=== PATIENT | male | born 1935 | race Caucasian/White ===

== ENCOUNTER → 2016-11-26 | Outpatient (CLI) | payer MEDICARE, OTHER ==
[~2016-11-26] MED LIST: ADVAIR 250/501 EA INH; ASPIRIN325 M2 PO; ASPIRIN325 MG PO; AVODART0.5 MG PO; BISACODYL5 MG PO; BREO ELLIPTA 11 EACH IH; BREO ELLIPTA INH; BUMETANIDE2 MG PO; BUMEX2 MG PO; CITRACAL-VIT D1 EAC1 PO; DAYPRO600 M1 PO; DIGOXIN0.125 MG PO; DIGOXIN0.25 MG PO; DIPHENHYDRAMINE25 MG PO; DUONEB 3 MG/3 ML3 M1 NEB; EFFEXOR XR75 M2 PO; FEXOFENADINE180 MG PO; FLOMAX0.4 MG PO; FUROSEMIDE20 MG PO; HYDROCODONE BIT1 T11 PO; K-DUR 2020 MEQ PO; LANTUS SOLOS100 U/M1 SC; LANTUS100 U/ML SC; LEVEMIR10 ML SC; LORAZEPAM1 MG PO; LYRICA150 MG PO; METOLAZONE2.5 MG PO; MORPHINE SULFAT15 MG PO; MS CONTIN30 MG PO; NEURONTIN100 MG PO; NOVOLOG MI100 UNIT/1 SQ; NOVOLOG MIX 70/30 SC; OMNICEF300 MG PO; OXYGEN NAS; POTASSIUM CHLO20 ME1 PO; POTASSIUM CHLO20 MEQ PO; ROBAXIN750 MG PO; VENLAFAXINE HY150 M2 PO; VERAPAMIL ER240 MG PO; VIBRAMYCIN100 MG PO; VICO75300 PO; VITAMIN D50000 UNIT PO
[2016-11-26 10:54] LABS: URINE TP/CRE RATIO 0.5 (<0.21)
== END | disposition home or self-care (01) ==
LOC: LAB 10:30
PROVIDERS: Internal Medicine Nephrology
DX: I12.9 Hypertensive chronic kidney disease with stage 1 through stage 4 chronic kidney disease, or unspecified chronic kidney disease (principal); I50.9 Heart failure, unspecified; N18.4 Chronic kidney disease, stage 4 (severe); E55.9 Vitamin D deficiency, unspecified; E21.1 Secondary hyperparathyroidism, not elsewhere classified

== ENCOUNTER → 2017-02-05 | Outpatient (CLI) | payer MEDICARE, OTHER ==
[2017-02-05 13:31] LABS: BASO # 0.1 10*3/uL (0.0-0.1); BASO % 0.6 % (0.0-1.0); EOS # 0.2 10*3/uL (0.0-0.4); EOS % 1.6 % (1.0-4.0); HEMATOCRIT 41.9 % (42.0-52.0); HEMOGLOBIN 12.7 g/dl (14.0-18.0); IG # 0.1 10*3/uL (0.0-0.1); LYMPH % 21.1 % (27.0-41.0); MEAN CELL VOLUME 92.9 fl (80.0-94.0); MEAN CORPUSCULAR HGB 28.2 pg (27.0-31.0); MEAN CORPUSCULAR HGB CONC 30.3 g/dl (33.0-37.0); MEAN PLATELET VOLUME 9.8 fl (9.6-12.3); MONO # 1.2 10*3/uL (0.1-1.0); MONO % 8.4 % (3.0-9.0); NEUT # 9.4 10*3/uL (2.3-7.9); NEUT % 67.4 % (47.0-73.0); PLATELET COUNT AUTOMATED 238 10*3/uL (130-400); RED BLOOD COUNT 4.51 10*6/uL (4.50-5.90); RED CELL DISTRI WIDTH 16.3 % (0-14.5); RETICULOCYTE % 2.56 % (0.50-2.50)
[2017-02-05 13:34] LABS: IRF 27.5 % (2.4-13.3)
[2017-02-05 13:41] LABS: URINE TP/CRE RATIO 0.5 (<0.21)
[2017-02-05 13:57] LABS: ALBUMIN 3.6 gm/dl (3.1-4.5); BILIRUBIN, TOTAL 0.6 mg/dl (0.2-1.0); MAGNESIUM 2.3 mg/dL (1.5-2.1); PHOSPHOROUS 2.9 mg/dL (2.5-4.9); TOTAL PROTEIN 7.6 gm/dL (6.4-8.2)
[2017-02-05 14:05] LABS: FERRITIN 176.5 ng/mL (22.0-322.0); PTH INTACT 86.4 pg/mL (14.0-72.0)
== END | disposition home or self-care (01) ==
LOC: LAB 01-31 00:59
PROVIDERS: Internal Medicine Nephrology
DX: I13.0 Hypertensive heart and chronic kidney disease with heart failure and stage 1 through stage 4 chronic kidney disease, or unspecified chronic kidney disease (principal); E11.22 Type 2 diabetes mellitus with diabetic chronic kidney disease; N18.4 Chronic kidney disease, stage 4 (severe); I50.9 Heart failure, unspecified; E21.1 Secondary hyperparathyroidism, not elsewhere classified; M18.4 Other bilateral secondary osteoarthritis of first carpometacarpal joints; E55.9 Vitamin D deficiency, unspecified

== ENCOUNTER → 2017-04-16 | Outpatient (CLI) | payer MEDICARE, OTHER ==
[2017-04-16 12:33] LABS: BASO % 0.3 % (0.0-1.0); EOS # 0.1 10*3/uL (0.0-0.4); HEMATOCRIT 39.2 % (42.0-52.0); IG # 0.1 10*3/uL (0.0-0.1); LYMPH # 1.3 10*3/uL (1.3-4.4); LYMPH % 12.5 % (27.0-41.0); MEAN CELL VOLUME 90.3 fl (80.0-94.0); MEAN CORPUSCULAR HGB 27.6 pg (27.0-31.0); MEAN CORPUSCULAR HGB CONC 30.6 g/dl (33.0-37.0); MEAN PLATELET VOLUME 9.2 fl (9.6-12.3); MONO % 9.3 % (3.0-9.0); NEUT # 7.8 10*3/uL (2.3-7.9); NEUT % 76.2 % (47.0-73.0); PLATELET COUNT AUTOMATED 229 10*3/uL (130-400); RED BLOOD COUNT 4.34 10*6/uL (4.50-5.90); RET-He 27.3 pg (32.1-37.9); RETICULOCYTE % 1.98 % (0.50-2.50); WHITE BLOOD COUNT 10.3 10*3/uL (4.8-10.8)
[2017-04-16 12:47] LABS: URINE TP/CRE RATIO 0.6 (<0.21)
[2017-04-16 13:01] LABS: ALBUMIN 2.9 gm/dl (3.1-4.5); PHOSPHOROUS 2.2 mg/dL (2.5-4.9); POTASSIUM 4.1 mmol/L (3.5-5.1)
[2017-04-16 13:02] LABS: FERRITIN 170.5 ng/mL (22.0-322.0); PTH INTACT 79.3 pg/mL (14.0-72.0); VITAMIN D, 25-HYDROXY 30.7 ng/mL (30-100)
[2017-04-16 13:03] LABS: BILIRUBIN, TOTAL 0.4 mg/dl (0.2-1.0)
== END | disposition home or self-care (01) ==
LOC: LAB 01:40
PROVIDERS: Internal Medicine Nephrology
DX: I13.0 Hypertensive heart and chronic kidney disease with heart failure and stage 1 through stage 4 chronic kidney disease, or unspecified chronic kidney disease (principal); E11.22 Type 2 diabetes mellitus with diabetic chronic kidney disease; I50.9 Heart failure, unspecified; N18.4 Chronic kidney disease, stage 4 (severe); E21.1 Secondary hyperparathyroidism, not elsewhere classified; E55.9 Vitamin D deficiency, unspecified

== ENCOUNTER → 2017-06-17 | Outpatient (CLI) | payer MEDICARE, OTHER ==
[2017-06-17 16:29] LABS: BASO # 0.1 10*3/uL (0.0-0.1); BASO % 0.6 % (0.0-1.0); EOS # 0.1 10*3/uL (0.0-0.4); EOS % 1.3 % (1.0-4.0); HEMATOCRIT 36.7 % (42.0-52.0); HEMOGLOBIN 10.9 g/dl (14.0-18.0); IG # 0.1 10*3/uL (0.0-0.1); LYMPH # 1.3 10*3/uL (1.3-4.4); LYMPH % 14.8 % (27.0-41.0); MEAN CELL VOLUME 90.4 fl (80.0-94.0); MEAN CORPUSCULAR HGB 26.8 pg (27.0-31.0); MEAN CORPUSCULAR HGB CONC 29.7 g/dl (33.0-37.0); MEAN PLATELET VOLUME 9.2 fl (9.6-12.3); MONO # 0.8 10*3/uL (0.1-1.0); NEUT # 6.4 10*3/uL (2.3-7.9); NEUT % 73.4 % (47.0-73.0); PLATELET COUNT AUTOMATED 226 10*3/uL (130-400); RED BLOOD COUNT 4.06 10*6/uL (4.50-5.90); RED CELL DISTRI WIDTH 16.4 % (0-14.5); RETICULOCYTE % 3.15 % (0.50-2.50); WHITE BLOOD COUNT 8.7 10*3/uL (4.8-10.8)
[2017-06-17 16:36] LABS: URINE TP/CRE RATIO 0.5 (<0.21)
[2017-06-17 16:37] LABS: IRF 24.1 % (2.4-13.3); RET-He 25.9 pg (32.1-37.9)
[2017-06-17 16:59] LABS: MAGNESIUM 2.1 mg/dL (1.5-2.1); PHOSPHOROUS 2.8 mg/dL (2.5-4.9); POTASSIUM 5.1 mmol/L (3.5-5.1)
[2017-06-17 17:02] LABS: BILIRUBIN, TOTAL 0.3 mg/dl (0.2-1.0); TOTAL PROTEIN 7.4 gm/dL (6.4-8.2)
[2017-06-17 17:07] LABS: FERRITIN 198.5 ng/mL (22.0-322.0); PTH INTACT 74.2 pg/mL (14.0-72.0); VITAMIN D, 25-HYDROXY 27.7 ng/mL (30-100)
== END | disposition home or self-care (01) ==
LOC: LAB 03:04
PROVIDERS: Internal Medicine Nephrology
DX: I13.0 Hypertensive heart and chronic kidney disease with heart failure and stage 1 through stage 4 chronic kidney disease, or unspecified chronic kidney disease (principal); E11.22 Type 2 diabetes mellitus with diabetic chronic kidney disease; I50.9 Heart failure, unspecified; N18.4 Chronic kidney disease, stage 4 (severe); E55.9 Vitamin D deficiency, unspecified; E21.1 Secondary hyperparathyroidism, not elsewhere classified

== ENCOUNTER → 2017-07-10 | Outpatient (CLI) | payer MEDICARE, OTHER ==
[2017-07-10 15:39] LABS: BASO % 0.4 % (0.0-1.0); EOS # 0.1 10*3/uL (0.0-0.4); EOS % 1.2 % (1.0-4.0); HEMATOCRIT 36.8 % (42.0-52.0); LYMPH # 1.1 10*3/uL (1.3-4.4); LYMPH % 12.5 % (27.0-41.0); MEAN CELL VOLUME 90.4 fl (80.0-94.0); MEAN CORPUSCULAR HGB CONC 29.9 g/dl (33.0-37.0); MEAN PLATELET VOLUME 9.3 fl (9.6-12.3); MONO # 0.7 10*3/uL (0.1-1.0); MONO % 7.5 % (3.0-9.0); NEUT % 77.7 % (47.0-73.0); PLATELET COUNT AUTOMATED 220 10*3/uL (130-400); RED BLOOD COUNT 4.07 10*6/uL (4.50-5.90); RED CELL DISTRI WIDTH 15.8 % (0-14.5); RETICULOCYTE % 1.71 % (0.50-2.50)
[2017-07-10 15:47] LABS: URINE CREATININE RANDOM 40.2 mg/dL
[2017-07-10 15:55] LABS: ALBUMIN 2.9 gm/dl (3.1-4.5); CREATININE 2.93 mg/dL (0.70-1.30); MAGNESIUM 2.2 mg/dL (1.5-2.1); PHOSPHOROUS 3.9 mg/dL (2.5-4.9); POTASSIUM 3.7 mmol/L (3.5-5.1); TOTAL PROTEIN 7.2 gm/dL (6.4-8.2)
[2017-07-11 05:09] LABS: TOTAL PROTEIN, SERUM 6.2 g/dL (6.0-8.5)
[2017-07-11 16:11] LABS: A/G RATIO 0.9 (0.7-1.7); ALBUMIN 2.9 g/dL (2.9-4.4); ALPHA-1-GLOBULIN 0.3 g/dL (0.0-0.4); ALPHA-2-GLOBULIN 0.9 g/dL (0.4-1.0); BETA GLOBULIN 0.9 g/dL (0.7-1.3); GAMMA GLOBULIN 1.2 g/dL (0.4-1.8); GLOBULIN, TOTAL 3.3 g/dL (2.2-3.9); M-SPIKE Not Observed g/dL (Not Observed)
== END | disposition home or self-care (01) ==
LOC: LAB 07-09 02:58
PROVIDERS: Internal Medicine Nephrology
DX: I13.0 Hypertensive heart and chronic kidney disease with heart failure and stage 1 through stage 4 chronic kidney disease, or unspecified chronic kidney disease (principal); E11.22 Type 2 diabetes mellitus with diabetic chronic kidney disease; I50.9 Heart failure, unspecified; N18.4 Chronic kidney disease, stage 4 (severe); E21.1 Secondary hyperparathyroidism, not elsewhere classified; E55.9 Vitamin D deficiency, unspecified

== ENCOUNTER → 2017-08-08 | Outpatient (CLI) | payer MEDICARE, OTHER ==
[2017-08-08 15:57] LABS: BASO # 0.1 10*3/uL (0.0-0.1); BASO % 0.5 % (0.0-1.0); EOS # 0.2 10*3/uL (0.0-0.4); EOS % 1.5 % (1.0-4.0); HEMATOCRIT 39.3 % (42.0-52.0); HEMOGLOBIN 11.5 g/dl (14.0-18.0); LYMPH # 1.6 10*3/uL (1.3-4.4); LYMPH % 13.9 % (27.0-41.0); MEAN CELL VOLUME 89.3 fl (80.0-94.0); MEAN CORPUSCULAR HGB 26.1 pg (27.0-31.0); MEAN CORPUSCULAR HGB CONC 29.3 g/dl (33.0-37.0); MONO # 0.8 10*3/uL (0.1-1.0); NEUT # 8.8 10*3/uL (2.3-7.9); NEUT % 76.3 % (47.0-73.0); PLATELET COUNT AUTOMATED 268 10*3/uL (130-400); RED CELL DISTRI WIDTH 15.5 % (0-14.5); WHITE BLOOD COUNT 11.5 10*3/uL (4.8-10.8)
[2017-08-08 16:25] LABS: ALBUMIN 2.9 gm/dl (3.1-4.5); BILIRUBIN, DIRECT 0.1 mg/dL (0.0-0.2); CREATININE 2.52 mg/dL (0.70-1.30); PHOSPHOROUS 4.2 mg/dL (2.5-4.9); POTASSIUM 3.8 mmol/L (3.5-5.1); TOTAL PROTEIN 7.8 gm/dL (6.4-8.2)
== END | disposition home or self-care (01) ==
LOC: LAB 15:29
PROVIDERS: Internal Medicine Nephrology
DX: E55.9 Vitamin D deficiency, unspecified (principal); E21.1 Secondary hyperparathyroidism, not elsewhere classified; E11.22 Type 2 diabetes mellitus with diabetic chronic kidney disease; I13.0 Hypertensive heart and chronic kidney disease with heart failure and stage 1 through stage 4 chronic kidney disease, or unspecified chronic kidney disease; I50.9 Heart failure, unspecified; N18.4 Chronic kidney disease, stage 4 (severe); E11.42 Type 2 diabetes mellitus with diabetic polyneuropathy; D50.9 Iron deficiency anemia, unspecified

== ENCOUNTER → 2017-09-05 | Outpatient (CLI) | payer MEDICARE, OTHER ==
[2017-09-05 12:53] LABS: BASO % 0.4 % (0.0-1.0); EOS # 0.1 10*3/uL (0.0-0.4); HEMATOCRIT 37.8 % (42.0-52.0); HEMOGLOBIN 11.1 g/dl (14.0-18.0); LYMPH % 9.4 % (27.0-41.0); MEAN CELL VOLUME 89.4 fl (80.0-94.0); MEAN CORPUSCULAR HGB 26.2 pg (27.0-31.0); MEAN CORPUSCULAR HGB CONC 29.4 g/dl (33.0-37.0); MEAN PLATELET VOLUME 9.2 fl (9.6-12.3); MONO # 0.9 10*3/uL (0.1-1.0); MONO % 8.7 % (3.0-9.0); NEUT # 8.4 10*3/uL (2.3-7.9); NEUT % 79.8 % (47.0-73.0); PLATELET COUNT AUTOMATED 170 10*3/uL (130-400); RED BLOOD COUNT 4.23 10*6/uL (4.50-5.90); RED CELL DISTRI WIDTH 16.1 % (0-14.5); WHITE BLOOD COUNT 10.5 10*3/uL (4.8-10.8)
[2017-09-05 14:00] LABS: CREATININE 2.63 mg/dL (0.70-1.30); POTASSIUM 3.6 mmol/L (3.5-5.1); TOTAL PROTEIN 7.4 gm/dL (6.4-8.2)
== END | disposition home or self-care (01) ==
LOC: LAB 12:37
PROVIDERS: Internal Medicine Nephrology
DX: I13.0 Hypertensive heart and chronic kidney disease with heart failure and stage 1 through stage 4 chronic kidney disease, or unspecified chronic kidney disease (principal); E11.22 Type 2 diabetes mellitus with diabetic chronic kidney disease; I50.9 Heart failure, unspecified; N18.4 Chronic kidney disease, stage 4 (severe); E21.1 Secondary hyperparathyroidism, not elsewhere classified; E55.9 Vitamin D deficiency, unspecified

== ENCOUNTER 2017-10-28 20:39 | Inpatient (IN) | payer MEDICARE, OTHER ==
[~2017-10-28] VITALS: Ht 172.7 cm; Wt 107.7 kg
[2017-10-28 20:39] VITALS: BP 162/62
--- NOTE | 2017-10-28 20:39 | NUR ---
2+ PITTING EDEMA WITH REDNESS/FLAKEY SKIN NOTED TO LOWER EXTREMITIES BILATERALLY. EXCORIATION NOTED TO PERINEAL AREA.
[2017-10-28 21:49] VITALS: BP 149/64
[2017-10-28 22:19] LABS: HEMATOCRIT 32.8 % (42.0-52.0); HEMOGLOBIN 9.9 g/dl (14.0-18.0); MEAN CELL VOLUME 90.4 fl (80.0-94.0); MEAN CORPUSCULAR HGB 27.3 pg (27.0-31.0); MEAN CORPUSCULAR HGB CONC 30.2 g/dl (33.0-37.0); MEAN PLATELET VOLUME 9.6 fl (9.6-12.3); PLATELET COUNT AUTOMATED 209 10*3/uL (130-400); RED BLOOD COUNT 3.63 10*6/uL (4.50-5.90); RED CELL DISTRI WIDTH 17.4 % (0-14.5); WHITE BLOOD COUNT 13.3 10*3/uL (4.8-10.8)
[2017-10-28 22:35] LABS: ACT PARTIAL THROMBO TIME 32.7 SECONDS (20.8-31.5); INTERNATIONAL NORM RATIO 1.4 (2.0-3.5)
[2017-10-28 22:37] LABS: ALBUMIN 2.9 gm/dl (3.1-4.5); ALKALINE PHOSPHATASE 65 U/L (45-117); BUN 64 mg/dl (7-24); CHLORIDE 102 mmol/L (98-107); CREATININE 3.19 mg/dL (0.70-1.30); POTASSIUM 5.8 mmol/L (3.5-5.1); SGOT/AST 25 IU/L (3-35); SGPT/ALT 25 U/L (12-78); SODIUM 140 mmol/L (136-145); TOTAL PROTEIN 6.6 gm/dL (6.4-8.2); TROPONIN I < 0.015 ng/ml (<0.045)
[2017-10-28 22:52] LABS: BASOPHILS 1 % (0-1); PLATELET SUFFICIENCY NORMAL (NORMAL); TOTAL CELLS COUNTED 100 #CELLS
[2017-10-28 23:35] VITALS: BP 162/53
[2017-10-28 23:42] LABS: BILIRUBIN NEGATIVE (NEGATIVE); BLOOD NEGATIVE (NEGATIVE); CLARITY CLEAR (CLEAR); COLOR YELLOW (YELLOW); GLUCOSE NEGATIVE (NEGATIVE); KETONE NEGATIVE (NEGATIVE); LEUKO ESTERASE NEGATIVE (NEGATIVE); NITRITE NEGATIVE (NEGATIVE); UROBILINOGEN 0.2 E.U./dl (0.2-1.0)
[2017-10-28 23:52] LABS: BACTERIA TRACE; WBC 0-2 wbc/hpf (0-5)
[2017-10-29 00:29] VITALS: BP 151/64
--- NOTE | 2017-10-29 00:29 | NUR ---
A 81, admitted to , under the services of BERNADETTE Ba DO with a diagnosis of SYNCOPE/FREQUENT FALLS. Chief complaint is HAD FALLEN AT HOME 3 TIMES, SAID HE WAS WEAK AND DIZZY TODAY, SLIGHTLY SOB. Patient arrived via bed from ER. Monitor applied. Initial assessment completed. Vital signs taken and recorded. BERNADETTE BA DO notified of admission to the unit. Orders received. See assessment for past medical history, medications and allergies. Patient and/or family oriented to unit. [facility] visitation policy reviewed. Clothing/patient valuable form completed. ECCYMOTIC AREA NOTED TO LEFT HIP. IV IN LAC, GROIN AREA EXCORIATED. LEGS SWOLLEN, SCATTERED REDDNESS, SCALEY, AND FLAKEY, NO OPEN AREAS NOTED. FLORES INTACT, DRAINING CLEAR YELLOW URINE. HEARING AID AMPLIFIER NECKLACE PLACED IN TOP DRAWER. HOME MEDICATIONS UNABLE TO RECONCILE DUE TO PATIENT UNABLE TO VERIFY MEDICATIONS. NEED VERIFIED. GENE SEGAL
--- NOTE | 2017-10-29 00:45 | NUR ---
UNABLE TO STAND AT THIS TIME FOR ORTHOSTATIC BP. WAS ASYMPT FOR LAYING AND SITTING.
[2017-10-29 01:02] VITALS: BP 151/64
[2017-10-29 07:02] LABS: BASO % 0.3 % (0.0-1.0); EOS # 0.1 10*3/uL (0.0-0.4); EOS % 0.8 % (1.0-4.0); HEMATOCRIT 34.9 % (42.0-52.0); HEMOGLOBIN 10.3 g/dl (14.0-18.0); LYMPH # 0.6 10*3/uL (1.3-4.4); LYMPH % 4.8 % (27.0-41.0); MEAN CELL VOLUME 92.1 fl (80.0-94.0); MEAN CORPUSCULAR HGB 27.2 pg (27.0-31.0); MEAN CORPUSCULAR HGB CONC 29.5 g/dl (33.0-37.0); MEAN PLATELET VOLUME 9.3 fl (9.6-12.3); MONO # 0.7 10*3/uL (0.1-1.0); MONO % 6.3 % (3.0-9.0); NEUT # 10.3 10*3/uL (2.3-7.9); PLATELET COUNT AUTOMATED 217 10*3/uL (130-400); RED BLOOD COUNT 3.79 10*6/uL (4.50-5.90); RED CELL DISTRI WIDTH 17.3 % (0-14.5); WHITE BLOOD COUNT 11.8 10*3/uL (4.8-10.8)
--- NOTE | 2017-10-29 07:06 | NUR ---
CALLED DR. GREENE REGAURDING PINK TINGED URINE COMING OUT OF FLORES. NO NEW ORDERS AT THIS TIME. DR. GREENE STATED HE WILL NOTIFY DAYLIGHT.
--- NOTE | 2017-10-29 07:30 | NUR ---
PT A&OX2 VS STABLE IS VERY AGITATED. PERIODS OF CONFUSION. "STATES HE ISN'T MAKING IT OUT OF HERE" "HE NEEDS TO TALK TO HIS " "DIDN'T KNOW HE WAS IN [place] UNTIL HE LOOKED OUT HIS WINDOW AND SAW THE GRIER BRIDGE" SKIN ON BOTH LOWER EXTREMITIES IS ACEVEDO RED. FLAKEY, HARD YELLOW SCALY PATCHES. +3 PITTING EDEMA ON LOWER EXTREMITIES. SKIN INTACT. SKIN TURGOR GOOD. PEDAL PLUSES PRESENT. CAP REFILL <3 SECS. FLORES CATH HAS CLEAR PATENTED. BLOOD CLOTS IN TUBING. OZZING BLOOD AROUND MEATUS SITE. REDDNESS AROUND PERINEAL, SKIN INTACT. PT C/O LEFT SHOULDER PAIN WITH ROM AND TO TOUCH "STATES IT'S A 4-5 OUT OF 10 PAIN SCALE" DENIES ANY SOB, CHEST PAIN, ABDOMINAL PAIN. INSTRUCTED PT TO NOT GET OUT OF BED AND USE HIS CALL LIGHT. CONTUINE TO ASSESS LYUDMILA CALL
[2017-10-29 07:31] LABS: ACT PARTIAL THROMBO TIME 33.1 SECONDS (20.8-31.5); INTERNATIONAL NORM RATIO 1.4 (2.0-3.5)
[2017-10-29 07:45] LABS: CREATININE 3.14 mg/dL (0.70-1.30); PHOSPHOROUS 5.7 mg/dL (2.5-4.9); THYROID STIM HORMONE (HS) 0.211 uIU/ml (0.358-4.75); TOTAL PROTEIN 6.9 gm/dL (6.4-8.2)
[2017-10-29 07:49] LABS: POTASSIUM 4.5 mmol/L (3.5-5.1)
[2017-10-29 08:00] VITALS: BP 122/80
[2017-10-29 08:29] LABS: VITAMIN D, 25-HYDROXY 30.6 ng/mL (30-100)
--- NOTE | 2017-10-29 08:30 | NUR ---
Manufacturing Maintenance Technician in to talk to patient. Patient states lives at home with his . There are 5 steps in the home. Physician: Dr. Venkatesh Jason Pharmacy: [email or web address] Home health services: none at present, has used previously Patient's level of ADLs: MAX ASSIST Patient has working utilities: yes DME: walker, cane, oxygen, nebulizer Follow-up physician's appointment after d/c: will be made by hospitalist nurse director upon discharge Does patient want to access PORTAL?: no Discharge plan discussed with patient. He lives at home with his . He doesn't ambulate well, he could be standing there talking to you and all of sudden he falls to the floor per him. He does use a walker/cane for ambulation. Discussed short term SNF and pt adamantly refuses. He is willing to have home health. He has had home health previously but doesn't remember the name of the company. I will speak to the . VISHAL MURRY
--- NOTE | 2017-10-29 09:00 | NUR ---
DR BELL SEE PT SEE NEW ORDERS. PT A&OX2 STILL AGITATED "WANTS HIS HERE WITH HIM" STILL C/O SHOULDER PAIN WITH ROM AND TOUCH. DENIES ANY OTHER PAIN. CONTINUE TO ASSESS LYUDMILA WILSON
--- NOTE | 2017-10-29 09:30 | NUR ---
WOUND NURSE INTO SEE PT SEE NEW ORDERS LYUDMLIA CALL SPN
--- NOTE | 2017-10-29 09:45 | NUR ---
PT OFF FLOOR TO X-RAY VIA TRANSPORT FOR LEFT SHOULDER RAY LYUDMILA CALL SPN
--- NOTE | 2017-10-29 09:45 | NUR ---
PT TO X-RAY VIA CART CONDITION STABLE LYUDMILA HINOJOSA SPN
--- NOTE | 2017-10-29 10:00 | NUR ---
PT RETURNED FROM X-RAY VIA VANIA COREAS CALL SPN
--- NOTE | 2017-10-29 10:30 | NUR ---
WASHED BOTH LEGS WITH WARM SOAP AND WATER RINSED AND DRIED. APPLIED LACTRIN LOTION TO BOTH LEGS. FLAKING ON BOTH LEGS PRESENT NO OPEN WOUNDS. COLOR IS RED NO ABNORMAL WARMTH TO TOUCH. IS A&O X3 AT THIS TIME. MEATUS CONTIUNES TO OOZ SMALL AMOUNT OF DARK BLOOD. DENIES ALL PAIN AT THIS TIME. WILL CONTIUNE TO ASSESS. LYUDMILA CALL SPN
--- NOTE | 2017-10-29 10:36 | NUR ---
PATIENT COMPLAINT OF PRURITIS OF THE LOWER LEGS, FLAKEY, RED, SCALEY. ADMINISTERED VISTARIL 25MG PO. WILL CONTINUE TO ASSESS. [facility]UDIS [facility]
[2017-10-29] MEDS ORDERED: FERROUS SULFAT325 MG PO (10:45)
[2017-10-29] MEDS ORDERED: REMERON15 M2 PO (10:46)
[2017-10-29] MEDS ORDERED: ASPIR 8181 MG PO (10:48)
--- NOTE | 2017-10-29 10:51 | NUR ---
MED RECONCILIATION COMPLETED WITH PHARMACIST AT [facility]
[2017-10-29 12:00] VITALS: BP 110/68
--- NOTE | 2017-10-29 12:39 | NUR ---
VISERAL EFFECTIVE PURITUS HAS DECREASED PT RESTING COMFORTABLE. CONTIUNE TO ASSESS LYUDMILA CALL SPN
--- NOTE | 2017-10-29 13:01 | NUR ---
This nurse was asked to evaluate patients BLE. BLE dry, warm, red and flaky. I would recommend washing BLE with soap and water and patting dry then apply lac hydrin daily.
--- NOTE | 2017-10-29 13:46 | NUR ---
Occupational Therapy evaluation completed this date on 5 with full eval to follow. Precautions include fall risk, fear of falling, martin, BURNS PAIUTE, poor oral intake, high complexity level 91013. Recommend OT per POC and SNF upon d/c to enable return home at independent level. Leslie Coles OTR/L
--- NOTE | 2017-10-29 14:11 | NUR ---
SPOKE TO DR JONES REGARDING PT DIET. EXPLAINED THAT PT HAS ONLY EATEN 1/2 OF ONE MEAL TODAY AND DIETARY STATED TO STUDENT NURSE THAT THE PT HAD REACHED HIS CALORIE INTAKE FOR THE DAY.PT HAS VERY POOR APPETITE AND DOES TAKE INSULIN BUT HAD NONE TODAY. PT BGM AT 6AM WAS 68,BGM AT 1100AM WAS 67.ORDER RECIEVED FOR REGULAR DIET.
--- NOTE | 2017-10-29 15:15 | NUR ---
Patient not appropriate for PT evaluation today at approximately 1510. Per nursing, patient is very weak today. Try PT eval tomorrow.
--- NOTE | 2017-10-29 15:55 | NUR ---
BLOOD SUGAR RECHECK WAS 73. PATIENT WAS ALERT, ORIENTED, AND VERY TALKATIVE. HIS DAUGHTER WAS AT BEDSIDE, ORDERED PATIENT A TRAY AND ENCOURAGED HIM TO EAT. WILL CONTINUE TO MONITOR.
[2017-10-29 16:00] VITALS: BP 120/53
--- NOTE | 2017-10-29 16:44 | NUR ---
DR. JONES NOTIFIED OF PATIENTS BLOOD SUGAR OF 53. 50ML OF DEXTROSE GIVEN PER PHYSCIAN. WILL RECHECK SUGAR IN 1 HOUR PER PHYSICIAN.
[2017-10-29 20:00] VITALS: BP 106/72
--- NOTE | 2017-10-29 20:10 | NUR ---
PT. AWAKE, ALERT, ORIENTED TO SELF ONLY AT THIS TIME. PT. HAS PERIODS OF CONFUSION UPON WAKING, PER NURSES REPORT. PT. DENIES SOB AT THIS TIME, CRACKLES IN BILATERAL BASES. PT. DENIES CP AT THIS TIME, HRR, PPP, TRACE EDEMA TO BLE. BOWEL SOUNDS NORMO X 4, LAST BM TODAY, PT. STATED RELIEF OF PRESSURE THAT HAD BEEN BOTHERING HIM T/O THE DAY. FLORES DRAINING RED/CLEAR URINE AT THIS TIME. CALL LIGHT WITHIN REACH, BED IN LOWEST POSITION, WHEELS LOCKED, BED ALARM ON.
--- NOTE | 2017-10-29 22:36 | NUR ---
NOTIFIED DR. GAY OF PTS. LOW BLOOD GLUCOSE READINGS T/O THE DAY, WELL THE PTS. NEED FOR DEXTROSE DURING THE DAY AT THIS TIME. DR. GAY MADE AWARE OF PTS. LACK OF INTAKE T/O THE DAY, AND SCHEDULED LEVEMIR DOSE. PER DR. GAY, IT IS OKAY TO HOLD LEVEMIR DOSE AT THIS TIME.
[2017-10-30] VITALS: BP 151/84
--- NOTE | 2017-10-30 06:00 | NUR ---
PT. BG - 65 AT THIS TIME. PT. ENCOURAGED TO DRINK ORANGE JUICE AT THIS TIME. WILL CONTINUE TO MONITOR.
[2017-10-30 08:00] VITALS: BP 141/83
[2017-10-30 08:00] LABS: BASO # 0.1 10*3/uL (0.0-0.1); BASO % 0.5 % (0.0-1.0); EOS # 0.1 10*3/uL (0.0-0.4); EOS % 0.8 % (1.0-4.0); HEMATOCRIT 33.7 % (42.0-52.0); LYMPH # 0.9 10*3/uL (1.3-4.4); LYMPH % 8.5 % (27.0-41.0); MEAN CELL VOLUME 90.8 fl (80.0-94.0); MEAN CORPUSCULAR HGB CONC 29.7 g/dl (33.0-37.0); MEAN PLATELET VOLUME 9.3 fl (9.6-12.3); MONO % 9.2 % (3.0-9.0); NEUT # 8.4 10*3/uL (2.3-7.9); NEUT % 80.5 % (47.0-73.0); PLATELET COUNT AUTOMATED 211 10*3/uL (130-400); RED BLOOD COUNT 3.71 10*6/uL (4.50-5.90); RED CELL DISTRI WIDTH 17.3 % (0-14.5); WHITE BLOOD COUNT 10.5 10*3/uL (4.8-10.8)
[2017-10-30 08:30] LABS: CREATININE 3.07 mg/dL (0.70-1.30); FREE T4 1.09 ng/dl (0.76-1.46); PHOSPHOROUS 3.8 mg/dL (2.5-4.9); POTASSIUM 3.6 mmol/L (3.5-5.1)
--- NOTE | 2017-10-30 08:30 | NUR ---
Wash House Worker in to see patient. Daughter, Justyna, is at the bedside. Her phone number is [phone]. She would like called with an update as to when and where he will go for his short term SNF. He is willing to go to a short term SNF prior to going home. Daughter and [facility] He [facility] a couple of years ago and received good care. marquetry worker/production planner scheduler to follow.
[2017-10-30 08:39] LABS: DIGOXIN 1.78 ng/ml (0.8-2.0)
--- NOTE | 2017-10-30 09:35 | NUR ---
OT DAILY NOTE PT SEEN THIS AM FOR 12 MINS OF OT. PT WAS SITTING IN BEDSIDE CHAIR WITH DAUGHTER PRESENT ON 5 L OXYGEN. PT DOZING OFF INTERMITTENTLY. PER PT DAUGHTER, PT HAS CONSTANT PAIN INHIS BACK. PT DOES NOT GIVE PAIN RATING. NOYOLA EDUCATED PATIENT ON USE OF AE FOR LB DRESSING INCLUDING CAFETERIA OR LUNCHROOM CHECKER TO DOFF SOCKS AND PANTS AND SOCK AID. PT DAUGHTER STATES THAT SHE AND HER MOTHER DO ALL OF THOSE THINGS FOR PATIENT AND THAT HE DOESN'T NEED TO. AT THIS TIME PATIENT STATES THAT HE IS TIRED AND JUST WANTS TO REST AND BE LEFT ALONE. PT REMAINED IN CHAIR WITH DAUGHTER PRESENT. CONTINUE CURRENT OT PLANOF CARE. JAZMÍN MAYBERRY/Gm
[2017-10-30 12:00] VITALS: BP 141/62
--- NOTE | 2017-10-30 12:58 | NUR ---
Physical therapy evaluation completed. Pt was extremely difficult to wake; deeply sleeping. SN assessed patient, then Dr. Aguilar arrived for assessment.VSS. Pt opened his eyes. Pt slowly woke for PT assessment. MOD A x 2 from chair, poor body awareness stand to sit. TOOL ANALYST x 2. Pt to conintue PT for transfers, strengthening, balance, mobility. Pt was pleasant and cooperative be the end of this assessment. Planning DC to SNF. Moderate complexity Physical Therapy evaluation d/t time with pt and chart review. Thank you for this referral. Jory Tobar, PT
--- NOTE | 2017-10-30 14:40 | NUR ---
Contacted [facility] and faxed referral, patient was accepted. Requires a 3 night stay, can go on Friday10/31/17 or later if/when medically stable for discharge. Hospital exemption completed online in [employer] system
[2017-10-30 16:00] VITALS: BP 147/75
[2017-10-30 20:00] VITALS: BP 102/85
[2017-10-30 23:00] VITALS: BP 127/62
[2017-10-31 06:45] LABS: CREATININE 2.92 mg/dL (0.70-1.30); POTASSIUM 3.3 mmol/L (3.5-5.1)
[2017-10-31 08:00] VITALS: BP 120/69
--- NOTE | 2017-10-31 08:00 | NUR ---
Management Supervisor in to see patient. He is sitting up in the bedside chair stating he feels better. He is still agreeable to go to [facility] to gain his strength back before returning home.
--- NOTE | 2017-10-31 10:39 | NUR ---
PHYSICAL THERAPY Mr Romero seen this AM 1:1 for his therapy session, Pt was up in his gerichair. Transfer sit/stand with MAX A X 2, up on wheeled walker for marching in place with MAX A X 1, and march to tolerance then sit to rest. Followed by sit/stand MOD A X 2, gait with W/W 8' X 1, MOD SUPPORTABILITY ENGINEER X 1, and much cueing for gait, walker, balance safety and back up in his gerichair, Pt on 4 Lo 2 with this. ISIDRO MCKINLEY COMMUNITY AFFAIRS MANAGER.
--- NOTE | 2017-10-31 10:56 | NUR ---
CONSULT CALLED TO DR KULKARNI WHO INFORMED ME THAT HE IS OUT OF TOWN AND NOT ACCEPTING [facility] THRU NEXT FRIDAY.
--- NOTE | 2017-10-31 10:57 | NUR ---
DR JONES CALLED TO INFORM HIM THAT DR KULKARNI WAS NOT ACCEPTING [facility].
[2017-10-31 12:00] VITALS: BP 137/75
--- NOTE | 2017-10-31 12:17 | NUR ---
PATIENT SEEN 1:1 OT THIS DATE. PATIENT COMPLETE 25 MINUTES OT. IDENTIFIED PATIENT BY NAME AND DATE OF . PATIENT SEATED IN RECLINER VERBALIZING FATIGUE AND CLOSING EYES. PATIENT WILLING TO COMPLETE SOME THERAPY TO TOLERANCE THIS DATE. COMPLETED BUE AROM ALL PLANES X 15 REPS SEATED WITH MOD REST BREAKS AND VERBAL CUES TECH/FORM FOR INCREASE INDEPENDENCE WITH ADL TASKS. PATIENT COMPLETED SIT TO STAND FROM RECLINER MIN A X 2 WITH STAND TOLERANCE 15 SECONDS X 1 AND 1 MIN X SECOND STAND WITH C/O WEAKNESS IN KNEES AND SHAKINESS. PATIENT DEMONSTRATED P+ ACTIVITY TOLERANCE AND REPORTS DID NOT SLEEP WELL LAST NIGHT. PATIENT IN RECLINER WITH CALL LIGHT THIS DATE. ALFREDO MOORE
--- NOTE | 2017-10-31 13:01 | NUR ---
PHYSICAL THERAPY Mr Romero seen this PM for his therapy session, present. Transfer sit/stand with MOD A X 1, and much better then his AM transfer. Gait with wheeled walker on o2 at 4 L, gait 18' X 1, with MIN NUT PICKER X 1, with verbal cueing for gait safety with no LOB but needing cueing for his safety. Pt back up in his bedside chair, call light and phone. ISIDRO MCKINLEY STITCH RUBBER.
--- NOTE | 2017-10-31 13:29 | NUR ---
Patient accepted to [facility] can go when stable for discharge.
[2017-10-31 16:00] VITALS: BP 131/66
[2017-10-31 20:00] VITALS: BP 138/67
[2017-11-01] VITALS: BP 138/62
[2017-11-01 07:05] LABS: BASO # 0.1 10*3/uL (0.0-0.1); BASO % 0.6 % (0.0-1.0); EOS # 0.2 10*3/uL (0.0-0.4); EOS % 1.6 % (1.0-4.0); HEMATOCRIT 36.7 % (42.0-52.0); HEMOGLOBIN 10.7 g/dl (14.0-18.0); LYMPH # 1.8 10*3/uL (1.3-4.4); LYMPH % 16.4 % (27.0-41.0); MEAN CELL VOLUME 90.2 fl (80.0-94.0); MEAN CORPUSCULAR HGB 26.3 pg (27.0-31.0); MEAN CORPUSCULAR HGB CONC 29.2 g/dl (33.0-37.0); MEAN PLATELET VOLUME 9.9 fl (9.6-12.3); MONO # 1.2 10*3/uL (0.1-1.0); MONO % 10.8 % (3.0-9.0); NEUT # 7.5 10*3/uL (2.3-7.9); PLATELET COUNT AUTOMATED 197 10*3/uL (130-400); RED BLOOD COUNT 4.07 10*6/uL (4.50-5.90); RED CELL DISTRI WIDTH 16.8 % (0-14.5); WHITE BLOOD COUNT 10.7 10*3/uL (4.8-10.8)
[2017-11-01 07:31] LABS: ALBUMIN 3.8 gm/dl (3.1-4.5); TOTAL PROTEIN 7.4 gm/dL (6.4-8.2)
--- NOTE | 2017-11-01 07:54 | NUR ---
Shift chart check completed.
[2017-11-01 08:00] VITALS: BP 130/75
--- NOTE | 2017-11-01 08:11 | NUR ---
NOTIFIED DR JONES OF CRITICAL CO2
--- NOTE | 2017-11-01 11:15 | NUR ---
OT DAILY NOTE TREATMENT ATTEMPTED THIS AM. PT SITTING IN RECLINER, DOZING OFF. PT STATED THAT HE DID NOT WANT TO DO ANYTHING AND HASN'T HAD BREAKFAST YET. PT LOOKED AT NOYOLA'S BAG AND STATED " I ALREADY HAVE ALL OF THET STUFF AT HOME". CONTINUE CURRENT OT PLAN OF CARE. JAZMÍN MAYBERRY/Gm
[2017-11-01 12:00] VITALS: BP 123/82
--- NOTE | 2017-11-01 13:51 | NUR ---
PHYSICAL THERAPY Patient did not want to participate in therapy today. He states he is depressed and just wants to go home. Max encouragement was provided to participate. Narcisa Meyer, PARACHUTE INSPECTOR
[2017-11-01] MEDS ORDERED: CARVEDILOL3.125 MG PO (16:07)
[2017-11-01] MEDS ORDERED: LORAZEPAM1 MG PO (16:07)
[2017-11-01] MEDS ORDERED: MORPHINE SULFAT15 MG PO (16:07)
[2017-11-01] MEDS ORDERED: VIBRAMYCIN100 MG PO (16:07)
[2017-11-01] MEDS ORDERED: ACETAZOLAMIDE250 MG PO (16:09)
--- NOTE | 2017-11-01 17:45 | NUR ---
REMOVED FLORES. PATIENT TOLERATED WELL. DRAINED 800ML FROM FLORES BAG.
--- NOTE | 2017-11-01 17:49 | NUR ---
WENT OVER D/C INSTRUCTIONS WITH PATIENT. REMOVED IV WITH CATHETER INTACT AND BLEEDING CONTROLLED. WAITING ON AMBULANCE TO TAKE PATIENT TO [facility].
--- NOTE | 2017-11-01 18:03 | NUR ---
CALLED REPORT TO [facility]. NOTIFIED ALBER THAT PATIENT WAS TRANSFERRED TO [facility].
--- NOTE | 2017-11-04 08:21 | NUR ---
PHYSICAL THERAPY CO-SIGN I approve of the Phyical Therapy notes written above. ROBERT BEDOLLA PT
--- NOTE | 2017-11-04 14:36 | NUR ---
OCCUPATIONAL THERAPY CO-SIGN I approve of the Occupational Therapy notes written above. ARCELIA LUA OTR/L
== END 2017-11-01 18:03 | disposition other institution (70) | DRG 291 ==
LOC: ED 20:39 → 5E 23:08 → EDHOLD 23:08 → 5E 23:44
PROVIDERS: Family Medicine; Internal Medicine; Internal Medicine Nephrology; Student in an Organized Health Care Education/Training Program; ADMIT Internal Medicine
DX: I13.0 Hypertensive heart and chronic kidney disease with heart failure and stage 1 through stage 4 chronic kidney disease, or unspecified chronic kidney disease (principal); I50.33 Acute on chronic diastolic (congestive) heart failure; E43 Unspecified severe protein-calorie malnutrition; J90 Pleural effusion, not elsewhere classified; E11.22 Type 2 diabetes mellitus with diabetic chronic kidney disease; E11.40 Type 2 diabetes mellitus with diabetic neuropathy, unspecified; I48.0 Paroxysmal atrial fibrillation; E87.3 Alkalosis; N18.4 Chronic kidney disease, stage 4 (severe); L03.119 Cellulitis of unspecified part of limb; Z68.41 Body mass index [BMI] 40.0-44.9, adult; E87.5 Hyperkalemia; D64.9 Anemia, unspecified; R55 Syncope and collapse; F32.9 Major depressive disorder, single episode, unspecified; F41.1 Generalized anxiety disorder; R29.6 Repeated falls; E55.9 Vitamin D deficiency, unspecified; E66.01 Morbid (severe) obesity due to excess calories; G89.29 Other chronic pain; Z66 Do not resuscitate; Z51.5 Encounter for palliative care; G47.33 Obstructive sleep apnea (adult) (pediatric); M54.9 Dorsalgia, unspecified; I25.10 Atherosclerotic heart disease of native coronary artery without angina pectoris; J44.9 Chronic obstructive pulmonary disease, unspecified; N40.0 Benign prostatic hyperplasia without lower urinary tract symptoms; Z98.61 Coronary angioplasty status; Z81.1 Family history of alcohol abuse and dependence; Z79.899 Other long term (current) drug therapy; Z79.82 Long term (current) use of aspirin; Z79.4 Long term (current) use of insulin; Z99.81 Dependence on supplemental oxygen; Z98.42 Cataract extraction status, left eye